=== PATIENT | female | born 1965 ===

== ENCOUNTER 2017-11-03 17:19 | Inpatient (IN) | payer BC, OTHER ==
[2017-11-03] MEDS ORDERED: Metoprolol 1 mg/ml Inj IVP STA (17:54)
--- NOTE | 2017-11-03 18:14 | ED PDOC ---
Arrival/HPI - General Chief Complaint: Palpitations Time Seen by Provider: 11/03/17 17:31 Historian: Patient, Family - History of Present Illness Narrative History of Present Illness (Text): 11/03/17 18:01 Patient is a 52 yo female, past medical history of diabetes, plantar fasciitis, presents to the Emergency Department with "fast heart rate" associated with dizziness and numbness "all over". Patient's daughter supplements her history. Patient reportedly was feeling her typical self earlier this morning although daughter states that "she became upset because I have to leave". The patient reportedly was walking across the street felt palpitations and became very dizzy and lightheaded. She was brought to a local clinic where she was noticed to have a "fast heart rate" and was sent to ER for evaluation. 11/03/17 22:58 Past Medical History - Infectious Disease Hx of Infectious Diseases: None - Tetanus Immunization Tetanus Immunization: Unknown - Reproductive Menopause: Yes - Cardiac Hx Hypertension: Yes - Pulmonary Hx Respiratory Disorders: No - Endocrine/Metabolic Hx Diabetes Mellitus Type 2: Yes Other/Comment: Neuropathies - Gastrointestinal Hx Gastroesophageal Reflux: Yes - Psychiatric Hx Psychophysiologic Disorder: No Hx Anxiety: No Hx Bipolar Disorder: No Hx Depression: No Hx Emotional Abuse: No Hx Hallucinations: No Hx Panic Disorder: No Hx Post Traumatic Stress Disorder: No Hx Psychosis: No Hx Physical Abuse: No Hx Schizophrenia: No Hx Sexual Abuse: No Hx Substance Use: No - Surgical History Hx Orthopedic Surgery: Yes (Left hand) Hx Tubal Ligation: Yes - Anesthesia Hx Anesthesia: Yes Hx Anesthesia Reactions: No Hx Malignant Hyperthermia: No - Suicidal Assessment Feels Threatened In Home Enviroment: No Family/Social History Family/Social History: Unknown Family HX Smoking Status: Unknown If Ever Smoked Hx Alcohol Use: No Hx Substance Use: No Hx Substance Use Treatment: No Allergies/Home Meds Allergies/Adverse Reactions: Allergies No Known Allergies Allergy (Verified 06/22/13 04:22) Home Medications: Home Meds Medication Instructions Recorded Confirmed Esomeprazole Magnesium [Nexium] 40 mg PO DAILY 06/22/13 11/04/17 Gabapentin 300 mg PO QID 06/22/13 11/04/17 Insulin Aspart, Recombinant 15 unit SC WM 06/22/13 11/04/17 [Novolog] Ciprofloxacin [Cipro] 500 mg PO HS 11/04/17 11/04/17 Insulin Glargine,Hum.rec.anlog 20 unit SQ HS 11/04/17 11/04/17 [Hectoraglmargi Urbina U-100] Lisinopril [Zestril] 2.5 mg PO DAILY 11/04/17 11/04/17 Meloxicam [Mobic] 15 mg PO DAILY 11/04/17 11/04/17 Phenazopyridine [Phenazopyridine 200 mg PO BID 11/04/17 11/04/17 HCl] traMADol [Ultram] 50 mg PO BID PRN 11/04/17 11/04/17 Review of Systems - Review of Systems Constitutional: Fatigue. absent: Fevers Eyes: absent: Vision Changes, Photophobia ENT: absent: Hearing Changes, Sore Throat Respiratory: SOB. absent: Cough, Wheezing Cardiovascular: Palpitations. absent: Chest Pain, Edema, Calf Pain Gastrointestinal: absent: Abdominal Pain, Nausea Genitourinary Female: absent: Dysuria, Frequency Musculoskeletal: Other (foot pain) Skin: absent: Rash Neurological: Dizziness, Other ("numbness all over"). absent: Headache, Focal Weakness Endocrine: Diaphoresis. absent: Polyuria Hemo/Lymphatic: absent: Easy Bleeding Psychiatric: Anxiety. absent: Depression Physical Exam - Physical Exam Narrative Physical Exam (Text): 11/03/17 17:46 Head: Atraumatic. Normocephalic. Eyes: PERRL. EOMI. Conjunctivae are not pale. ENT: Mucous membranes are moist and intact. Oropharynx is clear and symmetric. Neck: Supple. Full ROM. No JVD. No lymphadenopathy. No thyromegaly. Cardiovascular: Tachycardic. No murmurs noted. Pulmonary/Chest: Tachypneic. Clear to auscultation bilaterally. No wheezing, rales or rhonchi. Abdominal: Soft and non-distended. There is no tenderness. No rebound, guarding, or rigidity. Back: Normal inspection. Extremities: No edema. No cyanosis. No clubbing. Full range of motion in all extremities. No calf tenderness. Expresses pain to plantar surface of foot , chronic. Skin: Skin is pale and diaphoretic. Neurological: No slurred speech. No facial droop. No focal motor or sensory deficits. Psychiatric: Anxious. Vital Signs Reviewed: Yes Vital Signs Temp Pulse Resp BP Pulse Ox 11/03/17 23:05 68 18 127/73 99 11/03/17 18:45 75 18 98/78 L 96 11/03/17 18:08 126 H 18 111/92 H 100 11/03/17 17:30 98.6 F 140 H 18 134/79 98 Temperature: Afebrile Blood Pressure: Normal Pulse: Tachycardic Respiratory Rate: Normal Appearance: Positive for: Uncomfortable Pain Distress: Mild Finger Stick Blood Glucose: 185 Medical Decision Making ED Course and Treatment: 11/03/17 17:46 Impression: 52 year old female presents to the Emergency department for "fast heart rate" associated with dizziness and numbness "all over". Progress Notes: Patient seen immediately upon arrival. On initial exam, history was supplemented by boyfriend Mc with patient's permission as well as daughter. They state that patient had been emotional earlier in the day, then acutely developed theses symptoms crossing the street. On monitor she is found to be in a narrow complex regular tachycardia rate of 155-160. She is not hypotensive. Oxygen saturations 100%. She appears anxious and complains of numbness, although no focal weakness or neuro deficits noted. I feel numbness related to a component of hyperventilation. Initial EKG reveals narrow complex tachycardia consistent with possible supraventricular tachycardia. I discussed EKG and treatment plan with patient and daughter and boyfriend. Lopressor iv given and repeat ekg reveals normal sinus rhythm rate of 70s. Blood pressure stable. She denies any chest pain or shortness of breath. States numbness resolved. On re-exam , no endocrine emergency noted. Ddimer elevated. Patient nonsmoker, no ocps, no prolonged travel or immobilization. VQ ordered. EXAM:NM Lung Perfusion and Ventilation Scan Dictated and Authenticated by: Luis Suazo MD 11/03/2017 10:35 PM IMPRESSION: No acute findings or abnormalities to suggest PE. All labs, imaging studies reviewed with patient and family. Recommended admission for cardiac monitoring and evaluation. She is diabetic but denies any prior hx of known CAD. She continues to have no chest pain or shortness of breath. Patient's case d/w Dr. Casillas, covering for PMD, accepts patient to her service , will consult Dr. Draper. - Lab Interpretations Microbiology Results: Microbiology Results 11/03/17 18:00 Urine,Clean Catch Urine Culture - Preliminary Gram Negative Margarito Lab Results: 11/03/17 18:15 11/03/17 18:15 Lab Results 11/03/17 18:15: Thyroxine (T4) 8.6, TSH 3rd Generation 0.34 L 11/03/17 18:15: Sodium 138, Potassium 4.8, Chloride 107, Carbon Dioxide 20 L, Anion Gap 16, BUN 25 H, Creatinine 0.8, Est GFR ( Amer) > 60, Est GFR ( Non-Af Amer) > 60, Random Glucose 120 H, Calcium 9.7, Magnesium 1.9, Total Bilirubin 0.7, AST 27, ALT 24, Alkaline Phosphatase 84, Lactate Dehydrogenase 513, Total Creatine Kinase 60, Troponin I < 0.01, Total Protein 7.7, Albumin 4.2 , Globulin 3.5, Albumin/Globulin Ratio 1.2 11/03/17 18:15: PT 11.2, INR 0.98, APTT 28.3, D-Dimer, Quantitative 996 H 11/03/17 18:15: WBC 8.1, RBC 3.97, Hgb 11.7 L, Hct 34.4 L, MCV 86.6, MCH 29.5, MCHC 34.0, RDW 13.3, Plt Count 353, MPV 11.0, Gran % 53.7, Lymph % (Auto) 35.7 H , Hyde % (Auto) 8.1 H, Eos % (Auto) 2.0, Baso % (Auto) 0.5, Gran # 4.36, Lymph # (Auto) 2.9, Hyde # (Auto) 0.7 H, Eos # (Auto) 0.2, Baso # (Auto) 0.04 11/03/17 18:00: Urine Color Yellow, Urine Appearance Clear, Urine pH 6, Ur Specific Allison 1.005, Urine Protein Negative, Urine Glucose (UA) >1000 H, Urine Ketones Negative, Urine Blood Negative, Urine Nitrate Positive H, Urine Bilirubin Negative, Urine Urobilinogen 0.2, Ur Leukocyte Esterase Trace H, Urine RBC Negative, Urine WBC 1 - 3, Ur Epithelial Cells 0 - 2, Urine Bacteria Mod - RAD Interpretation Radiology Orders: 11/03/17 17:47 CHEST PORTABLE [RAD] Stat 11/03/17 19:42 LUNG PERF & VENT SCAN [NM] Stat - Medication Orders Current Medication Orders: Discontinued Medications Acetaminophen (Tylenol 325mg Tab) 650 mg PO Q6H PRN PRN Reason: Fever >100.4 F Alprazolam (Xanax) 0.25 mg PO STAT STA PRN Reason: Protocol Stop: 11/03/17 23:07 Last Admin: 11/04/17 00:58 Dose: Not Given Non-Admin Reason: Patient Refused Alprazolam (Xanax) 0.25 mg PO TID PRN; Protocol PRN Reason: Anxiety Stop: 11/11/17 10:01 Aspirin (Ecotrin) 81 mg PO DAILY VENKATA Last Admin: 11/04/17 09:06 Dose: 81 mg Dextrose (Dextrose 50% Inj) 50 ml IVP STAT STA Stop: 11/04/17 00:07 Last Admin: 11/04/17 00:13 Dose: Gabapentin (Neurontin) 300 mg PO TID VENKATA Last Admin: 11/04/17 14:56 Dose: 300 mg Behavioural Document 11/04/17 14:56 LMN (Rec: 11/04/17 14:56 LMN [id number]) Maintenance Maintenance Dose Yes Dextrose/Sodium Chloride (Dextrose 5%/0.45% Ns 1000 Ml) 1,000 mls @ 75 mls/hr IV .[id number] [facility] Last Admin: 11/04/17 02:38 Dose: 75 mls/hr eMAR Start Stop Document 11/04/17 02:38 MS (Rec: 11/04/17 02:38 MS [id number]) Intravenous Solution Start Date 11/04/17 Start Time 02:38 Insulin Human Regular (Humulin R Med) 0 units SC ACHS VENKATA PRN Reason: Protocol Last Admin: 11/04/17 11:40 Dose: 5 units Subcutaneous Administrations Document 11/04/17 11:40 LMN (Rec: 11/04/17 14:57 LMN [id number]) Injection Site MAR Injection Site Right Arm Charges for Administration # of Subcutaneous Administrations 1 Metoprolol Succinate (Toprol Xl) 25 mg PO BRK VENKATA Last Admin: 11/04/17 09:12 Dose: Not Given Non-Admin Reason: Patient Refused Metoprolol Tartrate (Lopressor) 5 mg IVP STAT STA Stop: 11/03/17 17:55 Last Admin: 11/03/17 23:40 Dose: Ondansetron HCl (Zofran Inj) 4 mg IVP Q6H PRN PRN Reason: Nausea/Vomiting Pantoprazole Sodium (Protonix Ec Tab) 40 mg PO 0600 VENKATA Last Admin: 11/04/17 05:31 Dose: 40 mg - Chadibe Statement The provider has reviewed the documentation as recorded by the Chadibe Konstantin Coppola. All medical record entries made by the Judson were at my direction and personally dictated by me. I have reviewed the chart and agree that the record accurately reflects my personal performance of the history, physical exam, medical decision making, and the department course for this patient. I have also personally directed, reviewed, and agree with the discharge instructions and disposition. Disposition/Present on Arrival - Present on Arrival Any Indicators Present on Arrival: No History of DVT/PE: No History of Uncontrolled Diabetes: No Urinary Catheter: No History of Decub. Ulcer: No History Surgical Site Infection Following: Orthopedic Procedures - Disposition Have Diagnosis and Disposition been Completed?: Yes Diagnosis: Tachyarrhythmia Disposition: HOSPITALIZED Disposition Time: 20:50 Patient Plan: Admission, Telemetry Condition: FAIR
[2017-11-03 18:45] LABS: PARTIAL THROMBOPLASTIN TIME 28.3 Seconds (25.1-36.5)
[2017-11-03 18:46] LABS: URINE APPEARANCE CLEAR (CLEAR); URINE COLOR YELLOW (YELLOW); URINE GLUCOSE (UA) >1000 mg/dL (NEGATIVE)
[2017-11-03 18:47] LABS: PH,URINE 6 (4.7-8.0); URINE BILIRUBIN NEGATIVE (NEGATIVE); URINE BLOOD NEGATIVE (NEGATIVE); URINE LEUKOCYTE ESTERASE TRACE Leu/uL (NEGATIVE); URINE PROTEIN NEGATIVE mg/dL (<30 mg/dL); URINE UROBILINOGEN 0.2 E.U./dL (<1 E.U./dL)
[2017-11-03 18:57] LABS: PROTHROMBIN TIME 11.2 SECONDS (9.4-12.5)
[2017-11-03 18:58] LABS: INR 0.98 (0.93-1.08)
[2017-11-03 19:02] LABS: BASO # 0.04 K/mm3 (0.0-2.0); BASO % 0.5 % (0.0-3.0); EOS # 0.2 (0.0-0.7); GRAN # 4.36 (1.4-6.5); GRAN % 53.7 % (50.0-68.0); HEMOGLOBIN 11.7 g/dL (12.0-16.0); LYMPH # 2.9 (1.2-3.4); LYMPH % 35.7 % (22.0-35.0); MEAN CELL VOLUME 86.6 fl (80.0-105.0); MEAN CORPUSCULAR HEMOGLOBIN 29.5 pg (25.0-35.0); MONO # 0.7 (0.1-0.6); MONO % 8.1 % (1.0-6.0); RBC 3.97 10^6/uL (3.5-6.1); RED CELL DISTRIBUTION WIDTH 13.3 % (11.5-14.5); WHITE BLOOD COUNT 8.1 10^3/ul (4.5-11.0)
[2017-11-03 19:10] LABS: URINE BACTERIA MOD (NEG); URINE EPITHELIAL CELLS 0 - 2 /hpf (0-5); URINE RBC NEGATIVE /hpf (0-2)
[2017-11-03 19:12] LABS: BLOOD UREA NITROGEN 25 mg/dL (7-21); CALCIUM 9.7 mg/dL (8.4-10.5); GFR AFRICAN-AMERICAN > 60; GFR NON-AFRICAN AMERICAN > 60
[2017-11-03 19:13] LABS: ALBUMIN 4.2 g/dL (3.0-4.8)
[2017-11-03 19:14] LABS: ALB/GLOB RATIO 1.2 (1.1-1.8); ALT/SGPT 24 U/L (7-56); AST/SGOT 27 U/L (14-36)
[2017-11-03 19:19] LABS: TROPONIN I < 0.01 ng/mL
--- NOTE | 2017-11-03 19:28 | CARD ---
APPROVED REPORT Date of service: 11/03/2017 EKG Measurement Heart [id number] <Conclusion> Normal sinus rhythm Inferior infarct, age undetermined Abnormal ECG
[2017-11-03 19:36] LABS: T4 8.6 ug/dL (5.5-11.0)
[2017-11-03] MEDS ORDERED: Dextrose 50% SYRINGE Inj (50 ml) ONE (23:50)
[2017-11-04] MEDS ORDERED: Dextrose 50% SYRINGE Inj (50 ml) IVP STA (00:06)
[2017-11-04] MEDS: Dextrose 5%/0.45% NS 1,000 ML IV SCH ×3 (00:58→02:38)
[2017-11-04 02:01] VITALS: RESP 20
[2017-11-04 05:51] VITALS: O2SAT 97
[2017-11-04] MEDS ORDERED: Pantoprazole 40 mg EC Tab PO SCH (06:00)
[2017-11-04 06:41] LABS: ALB/GLOB RATIO 1.2 (1.1-1.8); ALBUMIN 3.6 g/dL (3.0-4.8); ALT/SGPT 28 U/L (7-56); AST/SGOT 23 U/L (14-36); BLOOD UREA NITROGEN 21 mg/dL (7-21); GFR AFRICAN-AMERICAN > 60; GFR NON-AFRICAN AMERICAN > 60; HDL CHOLESTEROL 69 mg/dL (29-60)
[2017-11-04 06:52] LABS: LDL CHOLESTEROL 85 mg/dL (0-129)
[2017-11-04 06:53] LABS: TROPONIN I 0.02 ng/mL
[2017-11-04 06:57] LABS: FREE T4 1.18 ng/dL (0.78-2.19)
[2017-11-04] MEDS: Insulin Reg-MEDIUM-Coverage SC SCH ×2 (08:31→11:40)
--- NOTE | 2017-11-04 08:37 | RAD ---
Date of service: 11/03/2017 HISTORY: tachycardia COMPARISON: No prior. FINDINGS: LUNGS: No active pulmonary disease. PLEURA: No significant pleural effusion identified, no pneumothorax apparent. CARDIOVASCULAR: Normal. OSSEOUS STRUCTURES: No significant abnormalities. VISUALIZED UPPER ABDOMEN: Normal. OTHER FINDINGS: None. IMPRESSION: No active disease.
[2017-11-04] MEDS: Metoprolol Succinate 25 mg XL Tab PO SCH ×2 (09:07→09:12)
--- NOTE | 2017-11-04 09:12 | NM ---
Date of service: 11/03/2017 COMPARISON: Portable chest same day TECHNIQUE: 35.0 mCi technetium 99-m inhaled DTPA 4.0 mCI technetium 99-m MAA administered intravenously. FINDINGS: VENTILATION COMPONENT: Normal. PERFUSION COMPONENT: Normal. IMPRESSION: Lowprobability ventilation perfusion scan for pulmonary embolism.
--- NOTE | 2017-11-04 11:04 | HP ---
HISTORY OF PRESENT ILLNESS: The patient is a 52-year-old who was brought to Emergency Room after she had episode of palpitation. She felt very dizzy as if she is going to pass out. 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 She is still having palpitations. [facility] where she was found to have heart rate of more than 150 so she was sent to Emergency Room. By the time, she reached Emergency Room, her heart rate was 140. She was given dose of beta carmelo and her symptoms improved. Her heart rate went from 125 to 75. The patient was very anxious. She was also given dose of Xanax and been placed on observation overnight. PAST MEDICAL HISTORY: Significant for: 1. Nbj-fojnpbd-cwqfexltl diabetes. 2. Hypertension. 3. Hyperlipidemia. 4. History of diabetic neuropathy. 5. History of tubal ligation. 6. History of plantar fasciitis. 7. Gastritis and gastroesophageal reflux disease. ALLERGIES: SHE IS NOT ALLERGIC TO ANY MEDICATION. MEDICATIONS AT HOME: She is on Singulair 10 mg daily, gabapentin 300 three times a day, Nexium 40 mg daily. SOCIAL HISTORY: Denies smoking, drinking, or alcohol use. PHYSICAL EXAMINATION: GENERAL: Patient is awake, alert, oriented, communicative. VITAL SIGNS: The patient is afebrile, pulse 60, respirations 18, blood pressure 127/73. LUNGS: Bilateral fair airflow. No rhonchi or crackle. HEART: S1, S2 audible. ABDOMEN: Soft, nontender. No rebound. No guarding. NEUROLOGICAL: Patient is awake, alert, oriented, communicative. LABORATORY DATA: WBC is 8.1, hemoglobin 11.7, hematocrit 34, platelets 353. PT 11.2, INR 0.98. D-dimer 996. Chemistry: Sodium 138, potassium 4.8, chloride 107, CO2 20, BUN 25, creatinine 0.3. Blood sugar 120. LFTs are within normal limit. TSH is 0.34. Urinalysis shows positive nitrites, trace leukocytes and glucose, wbc's 1 to 3. X-ray of the chest is unremarkable. EKG done shows normal sinus rhythm, questionable inferior infarct, age indeterminate. ASSESSMENT: 1. Palpitation, probably anxiety disorder. 2. Hypertension. 3. Hbg-rlmsdcd-jenekckcd diabetes. 4. Hyperlipidemia. PLAN: Patient is going to be placed on observation. We will do serial EKG, also monitor blood sugar. Cardiology consult by Dr. Porfirio Draper has been requested, start her on beta-carmelo and we will re-evaluate patient in the morning. Paul Casillas MD
[2017-11-04 11:39] VITALS: BP 118/72; TEMP 98.2
[2017-11-04 16:38] VITALS: PULSE 73
--- NOTE | 2017-11-04 20:58 | CON ---
DATE: 11/04/2017 CARDIOLOGY CONSULTATION HISTORY OF PRESENT ILLNESS: The patient is a 52-year-old woman who presents with palpitations and dizziness. She was found to be in an SVT at a rate of 140 to 150. She was given beta-blockers which brought back to normal sinus rhythm. PAST MEDICAL HISTORY: Notable for diabetes mellitus. She denies hypertension. She was placed on low-dose lisinopril for "kidney protection." No history of cardiac disease. No angina, no shortness of breath. SOCIAL HISTORY: The patient does not smoke, does not drink alcohol. REVIEW OF SYSTEMS: A 14-point review of systems was reviewed in detail. Other than her palpitations or dizziness during her episode, no other symptoms were noted. PHYSICAL EXAMINATION VITAL SIGNS: Blood pressure varies from 104 systolic to 140 systolic, the heart rate is in the 60s, normal sinus rhythm. NECK: Negative JVD. LUNGS: Without rales. HEART: Reveals S1 and S2. EXTREMITIES: Without edema. LABORATORY DATA: Includes an EKG after her SVT, which shows normal sinus rhythm with no evidence for a bypass tract. Her thyroid functions are unremarkable. Troponin is negative x1. Glucose is 226, hemoglobin is 11.7. IMPRESSION: 1. Supraventricular tachycardia, which is now controlled on beta-blockers. 2. Diabetes mellitus. 3. Anemia. 4. Palpitations. 5. Dizziness. PLAN: Given these findings, I have ordered an echocardiogram which the patient refuses because she had an echocardiogram at her private doctor's office a month ago which was said to be normal. I have discussed with her about the need for beta-blockers to go home with. She should have a stress test given her diabetes mellitus and heart rate on medications. The patient would like to go back to her private doctor to have that all done. We will ambulate the patient. If no recurrent SVT, we can discontinue telemetry. No further cardiac workup is indicated at this time. Porfirio Draper MD
--- NOTE | 2017-11-05 07:54 | DS ---
HISTORY OF PRESENT ILLNESS: The patient is 52-year-old, seen and examined, doing well. No nausea, vomiting or diarrhea. No fever, no chills. No palpitations, no dizziness. Wants to get out of here. PHYSICAL EXAMINATION: VITAL SIGNS: She is afebrile, pulse 67, respirations 20, blood pressure 118/72. LUNGS: Bilateral good airflow. No rhonchi or crackle. HEART: S1, S2 audible. ABDOMEN: Soft, nontender. No rebound, no guarding. NEUROLOGICAL: The patient is awake, alert, oriented, communicative, ambulatory. LABORATORY DATA: Her thyroid profile is within normal limits. Chemistry: Sodium 140, potassium 4.6, chloride 105, CO2 24, BUN 21, creatinine 0.8, blood sugar of 126. ASSESSMENT: 1. Episode of supraventricular tachycardia. 2. Hypertension. 3. Lfx-eaakguc-zvvtoncrg diabetes. 4. History of plantar fasciitis, currently getting physical therapy. PLAN: The patient is going to be discharged home on metoprolol succinate 1 tablet daily. She will follow up with Dr. Vásquez, she might need Holter monitor and also, the patient will continue on all her usual medications. She is given prescription of metoprolol succinate 25 daily until she has further workup done as outpatient. Paul Casillas MD
--- NOTE | 2017-11-07 10:20 | CARD ---
APPROVED REPORT Date of service: 11/03/2017 EKG Measurement Heart [id number] <Conclusion> Supraventricular tachycardia Otherwise normal ECG
== END 2017-11-04 16:33 | disposition home or self-care (01) | DRG 310 ==
LOC: ED 17:19 → ERH 21:30 → 2RNO 11-04 00:30
PROVIDERS: ADMIT Internal Medicine; ATTEND Internal Medicine
DX: I47.1 Supraventricular tachycardia (principal); I10 Essential (primary) hypertension; E11.40 Type 2 diabetes mellitus with diabetic neuropathy, unspecified; D64.9 Anemia, unspecified; E78.5 Hyperlipidemia, unspecified; F41.9 Anxiety disorder, unspecified; K21.9 Gastro-esophageal reflux disease without esophagitis; Z79.1 Long term (current) use of non-steroidal anti-inflammatories (NSAID); Z79.899 Other long term (current) drug therapy; Z79.4 Long term (current) use of insulin; Z98.51 Tubal ligation status; K29.70 Gastritis, unspecified, without bleeding